=== PATIENT | male | born 1980 | race Caucasian/White ===

== ENCOUNTER 2016-09-12 09:45 | Emergency (ER) | payer OTHER ==
[2016-09-12 10:51] VITALS: BP 150/91
--- NOTE | 2016-09-12 12:00 | UC ---
Skin Complaint HPI - HPI Summary HPI Summary: has painful erythema on both his feet does blister--sever pain to walk on began on right foot 2 weeks after an exposure to cold in mid July is now on both feet has seen pcp---rx Keflex, Bactrim and hct 2.5% and the rash is worsening - History of Current Complaint Chief Complaint: UCSkin Time Seen by Provider: 09/12/16 10:54 Stated Complaint: TOE PAIN FROM COLD Hx Obtained From: Patient Onset/Duration: Gradual Onset, Lasting Weeks, Still Present, Worse Since - past week Timing: Constant Onset Severity: Mild Current Severity: Moderate Pain Intensity: 10 - in the morning before tylenol and ibuprofen Pain Scale Used: 0-10 Numeric Location: Discrete - toes and bottom of both feet Character: Swelling, Pain, Redness Aggravating: Touch Alleviating: OTC Meds Associated Signs & Symptoms: Positive: Negative - Allergy/Home Medications Allergies/Adverse Reactions: Allergies Allergy/AdvReac Type Severity Reaction Status Date / Time No Known Allergies Allergy Verified 09/12/16 10:41 Home Medications: Home Medications Armodafinil (NF) [Nuvigil (NF)] 09/12/16 [History] Bupropion HCl [Wellbutrin Sr] 09/12/16 [History] Creatinine (Bulk) [Creatinine] 09/12/16 [History] Flaxseed (Linseed) [Flax Seed Oil 1000 mg] 09/12/16 [History] Hydrocortisone (Topical) [Hydrocortisone] 09/12/16 [History] Lorazepam [Ativan] 09/12/16 [History] Prasterone (DHEA) CAP (NF) [Dhea Cap (NF)] 09/12/16 [History] Sulfamethox/Trimethoprim DS* [Bactrim DS 800/160 TAB*] 09/12/16 [History] Vortioxetine HBr [Trintellix] 09/12/16 [History] Review of Systems Constitutional: Negative Skin: Rash - as described Eyes: Negative ENT: Negative Respiratory: Negative Cardiovascular: Negative Gastrointestinal: Negative Genitourinary: Negative Motor: Negative Neurovascular: Negative Musculoskeletal: Negative Neurological: Negative Psychological: Negative All Other Systems Reviewed And Are Negative: Yes PMH/Surg Hx/FS Hx/Imm Hx Previously Healthy: No Psychological History Of: Reports: Anxiety - Surgical History Surgical History: None - Family History Known Family History: Positive: Hypertension, Diabetes - Social History Occupation: Employed Full-time Lives: With Family Alcohol Use: Occasionally Substance Use Type: Prescribed Smoking Status (MU): Light Every Day Tobacco Smoker Physical Exam Triage Information Reviewed: Yes Appearance: Well-Appearing, No Pain Distress, Well-Nourished Vital Signs: Initial Vital Signs Temp 99.2 F 09/12/16 10:43 Pulse 80 09/12/16 10:43 Resp 18 09/12/16 10:43 BP 150/91 09/12/16 10:43 Pulse Ox 99 09/12/16 10:43 Vital Signs Reviewed: Yes Eye Exam: Normal Eyes: Positive: Conjunctiva Clear ENT Exam: Normal ENT: Positive: Normal ENT inspection, Hearing grossly normal. Negative: Nasal congestion, Nasal drainage, Trismus, Muffled/hoarse voice Neck exam: Normal Neck: Positive: Supple, Nontender, No Lymphadenopathy Respiratory Exam: Normal Respiratory: Positive: Chest non-tender, Lungs clear, Normal breath sounds, No respiratory distress, No accessory muscle use Cardiovascular Exam: Normal Cardiovascular: Positive: RRR, No Murmur, Pulses Normal, Brisk Capillary Refill Musculoskeletal Exam: Normal Musculoskeletal: Positive: Strength Intact, ROM Intact, No Edema, Other: - pulses in feet strong and equal Neurological Exam: Normal Neurological: Positive: Alert Psychological Exam: Normal Skin: Positive: Other - as described-does moody Course/Dx - Course Course Of Treatment: off work-follow with Dr. Phillips on Thursday as we schedueled for you continue bactrim, hydrocort - Differential Diagnoses - Skin Complaint Differential Diagnoses: Cellulitis, Eczema, Impetigo, Systemic Illness, Urticaria - Diagnoses Provider Diagnoses: dermatitis Discharge - Discharge Plan Condition: Stable Disposition: HOME Patient Education Materials: Acute Rash (ED) Forms: *Work Release Referrals: Yoanna Phillips [Medical Doctor] - 09/15/16 7:15 am Jonathan Lovett MD [Primary Care Provider] -
== END 2016-09-12 12:18 | disposition home or self-care (01) ==
LOC: UCEAST 09:45
DX: L30.9 Dermatitis, unspecified (principal); F17.210 Nicotine dependence, cigarettes, uncomplicated
CPT/HCPCS: 99211; G0463

== ENCOUNTER 2017-10-06 11:12 | Emergency (ER) | payer OTHER ==
[2017-10-06 11:43] VITALS: BP 133/96
--- NOTE | 2017-10-06 12:29 | UC ---
Hand/Wrist HPI - HPI Summary HPI Summary: Patient presents s/p traumatic injury of the right wrist, he believes he must have injured it last night when he did a chin up. Today he noticed pain when certain movements such as gripping the mop handle and other times when he would bend it certain ways. He states the pain in over the volar aspect of the medial wrist. He describes it as an aching sensation and more sharp when he moves it. He denies any numbness or weakness. - History Of Current Complaint Chief Complaint: UCUpperExtremity Stated Complaint: WRIST PAIN Time Seen by Provider: 10/06/17 12:15 Hx Obtained From: Patient Onset/Duration: Sudden Onset Severity Initially: Moderate Severity Currently: Moderate Pain Intensity: 0 Character Of Pain: Aching Aggravating Factor(s): Movement, Flexion, Internal/External Rotation, Twisting Alleviating Factor(s): Nothing Associated Signs And Symptoms: Positive: Negative - Risk Factors Compartment Syndrome Risk Factors: Pain - Allergies/Home Medications Allergies/Adverse Reactions: Allergies Allergy/AdvReac Type Severity Reaction Status Date / Time No Known Allergies Allergy Verified 10/06/17 11:43 Home Medications: Home Medications Amphetamine-Dextroamphetamine [Adderall 5 mg] 5 mg PO BID 10/06/17 [History Confirmed 10/06/17] Ginkgo Biloba [Ginkgo Biloba 230 mg] 1 tab PO DAILY 10/06/17 [History Confirmed 10/06/17] PMH/Surg Hx/FS Hx/Imm Hx Previously Healthy: Yes - Surgical History Surgical History: None - Family History Known Family History: Positive: Hypertension, Diabetes - Social History Occupation: Employed Full-time Lives: Alone Alcohol Use: Rare Substance Use Type: None Smoking Status (MU): Heavy Every Day Tobacco Smoker Amount Used/How Often: 1 PPD Review of Systems Constitutional: Negative Skin: Negative Eyes: Negative ENT: Negative Respiratory: Negative Cardiovascular: Negative Gastrointestinal: Negative Genitourinary: Negative Motor: Decreased ROM Neurovascular: Negative Musculoskeletal: Negative Neurological: Negative Psychological: Negative Is Patient Immunocompromised?: No All Other Systems Reviewed And Are Negative: Yes Physical Exam Triage Information Reviewed: Yes Appearance: Well-Appearing Vital Signs: Initial Vital Signs Temp 99.0 F 10/06/17 11:38 Pulse 88 10/06/17 11:38 Resp 16 10/06/17 11:38 BP 133/96 10/06/17 11:38 Pulse Ox 97 10/06/17 11:38 Eye Exam: Normal ENT Exam: Normal Neck exam: Normal Neck: Positive: 1 Respiratory Exam: Normal Cardiovascular Exam: Normal Abdominal Exam: Normal Musculoskeletal: Positive: Other: - pain on palpation of the right wrist volar medial aspect. rom intact in all planes. neuro,without deficits. Neurological Exam: Normal Psychological Exam: Normal Skin Exam: Normal Hand/Wrist Course/Dx - Course Course Of Treatment: Patient presents s/p traumatic injury of the right wrist, he hurt it doing a chin up. Xrays were obtained and were negative for fracture. He presents with what is most likely a wrist yas, or tendonitis. He was placed in a cock up splint, and RX Naprosen. I recommend that if his symtpoms do not improve within 48 hours he should follow up with an orthopedists. - Differential Dx/Diagnosis Differential Diagnosis/HQI/PQRI: Sprain, Strain, Tendonitis Provider Diagnoses: sprain. stain. tendonitis of right wrist. Discharge - Discharge Plan Condition: Stable Disposition: HOME Prescriptions: Naproxen TAB* [Naprosyn 375 mg TAB*] 375 mg PO BID PRN #14 tab PRN Reason: wrist sprain Patient Education Materials: Wrist Sprain (ED) Forms: *Work Release Referrals: Chavez Jay MD [Medical Doctor] - Jonathan Lovett MD [Primary Care Provider] -
--- NOTE | 2017-10-06 12:38 | RAD ---
HISTORY: Right wrist injury COMPARISONS: None VIEWS: 3, Frontal, lateral, and oblique views of the right wrist FINDINGS: BONE DENSITY: Normal. BONES: There is no displaced fracture. JOINTS: There is no arthropathy. ALIGNMENT: There is no dislocation. SOFT TISSUES: Unremarkable. OTHER FINDINGS: None. IMPRESSION: NO ACUTE OSSEOUS INJURY. IF SYMPTOMS PERSIST, RECOMMEND REPEAT IMAGING.
== END 2017-10-06 12:46 | disposition home or self-care (01) ==
LOC: UCEAST 11:12
DX: F17.210 Nicotine dependence, cigarettes, uncomplicated (principal); S63.501A Unspecified sprain of right wrist, initial encounter; S66.811A Strain of other specified muscles, fascia and tendons at wrist and hand level, right hand, initial encounter; Y93.B2 Activity, push-ups, pull-ups, sit-ups; Y92.9 Unspecified place or not applicable; X58.XXXA Exposure to other specified factors, initial encounter; M65.841 Other synovitis and tenosynovitis, right hand
CPT/HCPCS: 99211; G0463

== ENCOUNTER 2018-02-03 13:10 | Emergency (ER) | payer OTHER ==
[2018-02-03 13:45] VITALS: BP 147/81
--- NOTE | 2018-02-03 14:33 | RAD ---
HISTORY: Right posterior knee pain COMPARISONS: None VIEWS: 4, Frontal, lateral, axial, and oblique views of the right knee FINDINGS: BONE DENSITY: Normal. BONES: There is no displaced fracture. JOINTS: There is no arthropathy. There is no suprapatellar joint effusion or lipohemarthrosis. ALIGNMENT: There is no dislocation. SOFT TISSUES: Unremarkable. OTHER FINDINGS: None. IMPRESSION: NO ACUTE OSSEOUS INJURY. IF SYMPTOMS PERSIST, RECOMMEND REPEAT IMAGING.
--- NOTE | 2018-02-03 16:14 | UC ---
Meseret Handy Elizabeth, scribed for Jonathan Wei MD on 02/03/18 at 1407 . Lower Extremity/Ankle HPI - HPI Summary HPI Summary: This patient is a 37 year old M presenting to [facility] with a chief complaint of posterior right leg pain above the knee since 1 day ago. The patient reports that he noticed a sharp pain in the area that started after he knelt down on all fours. The patient rates the pain 1/10 in severity. Symptoms aggravated by bending his knee. Symptoms alleviated by nothing. Patient denies any other pain. - History of Current Complaint Chief Complaint: UCLowerExtremity Stated Complaint: LEG INJURY Time Seen by Provider: 02/03/18 13:51 Hx Obtained From: Patient Onset/Duration: Sudden Onset, Lasting Days - 1 day, Still Present Severity Initially: Mild Severity Currently: Mild Pain Intensity: 1 Pain Scale Used: 0-10 Numeric Aggravating Factor(s): Other - bending his leg Alleviating Factor(s): Nothing Able to Bear Weight: Yes - Allergies/Home Medications Allergies/Adverse Reactions: Allergies Allergy/AdvReac Type Severity Reaction Status Date / Time No Known Allergies Allergy Verified 02/03/18 13:36 Home Medications: Home Medications Amphetamine MIXED SALTS TAB* [Adderall TAB*] 5 mg PO BID 02/03/18 [History Confirmed 02/03/18] PMH/Surg Hx/FS Hx/Imm Hx Other Cardiovascular History: NEGATIVE [place] Other Respiratory History: NEGATIVE COPD - Surgical History Surgical History: None - Family History Known Family History: Positive: Hypertension, Diabetes - Social History Alcohol Use: Rare Substance Use Type: None Smoking Status (MU): Heavy Every Day Tobacco Smoker Type: Cigarettes Amount Used/How Often: 1 PPD Review of Systems Constitutional: Negative - NEGATIVE FEVER ENT: Negative - NEGATIVE EPISTAXIS Musculoskeletal: Other: - pain at posterior of right leg above the knee Neurological: Negative - NEGATIVE HEADACHE All Other Systems Reviewed And Are Negative: Yes Physical Exam - Summary Physical Exam Summary: General: well-appearing, no pain distress Skin: warm, color reflects adequate perfusion, dry Head: normal Eyes: EOMI, RAJ ENT: normal Neck: supple, nontender Respiratory: CTA, breath sounds present Cardiovascular: RRR Abdomen: soft, nontender Bowel: present Musculoskeletal: normal, strength/ROM intact. Pain is not reproducible on knee exam. No effusion, no tenderness with movement of patella, no tenderness of lateral or collateral ligaments. Negative McBurneys, negative anterior and posterior Drawer Test, negative Yee Test Neurological: sensory/motor intact, A&O x3 Psychological: affect/mood appropriate Triage Information Reviewed: Yes Vital Signs: Initial Vital Signs Temp 98.4 F 02/03/18 13:40 Pulse 73 02/03/18 13:40 Resp 16 02/03/18 13:40 BP 147/81 02/03/18 13:40 Pulse Ox 100 02/03/18 13:40 Vital Signs Reviewed: Yes Lower Extremity Course/Dx - Course Course Of Treatment: PROBABLE RIGHT LATERAL HAMSTRING TENDON INJURY. NO EFFUSION, NO CLICKING, NO LOCKING, STABLE TO EXAM. THE PLAN IS REST FOR 4 DAYS AND RE EVAL IF NOT COMPLETELY IMPROVED. - Differential Dx/Diagnosis Provider Diagnoses: RIGHT KNEE PAIN Discharge - Sign-Out/Discharge Documenting (check all that apply): Discharge/Admit/Transfer - Discharge Plan Condition: Stable Disposition: HOME Patient Education Materials: Knee Pain (ED) Forms: *Work Release Referrals: Jonathan Lovett MD [Primary Care Provider] - Additional Instructions: FOLLOW UP WITH YOUR DOCTOR IF NOT COMPLETELY IMPROVED. GET RECHECKED FOR ANY WORSENING OF YOUR CONDITION OR QUESTIONS OR CONCERNS. - Billing Disposition and Condition Condition: STABLE Disposition: HOME The documentation as recorded by the Meseret rosario Elizabeth accurately reflects the service I personally performed and the decisions made by me, Jonathan Wei MD.
== END 2018-02-03 14:53 | disposition home or self-care (01) ==
LOC: UCEAST 13:10
DX: M25.561 Pain in right knee (principal); F17.210 Nicotine dependence, cigarettes, uncomplicated
CPT/HCPCS: 99211; G0463

== ENCOUNTER 2018-06-14 11:36 | Emergency (ER) | payer OTHER ==
[2018-06-14 11:53] VITALS: BP 155/114
--- NOTE | 2018-06-14 12:44 | RAD ---
HISTORY: pain rt knee COMPARISONS: February 03, 2018 VIEWS: 4 , Frontal, lateral, axial, and oblique views of the right knee FINDINGS: BONE DENSITY: Normal. BONES: There is no displaced fracture. JOINTS: There is no arthropathy. There is no suprapatellar joint effusion or lipohemarthrosis. ALIGNMENT: There is no dislocation. SOFT TISSUES: Unremarkable. OTHER FINDINGS: None. IMPRESSION: NO ACUTE OSSEOUS INJURY. IF SYMPTOMS PERSIST, RECOMMEND REPEAT IMAGING.
--- NOTE | 2018-06-14 12:47 | UC ---
Lower Extremity/Ankle HPI - HPI Summary HPI Summary: 37 year old male here in clinic today with a complaint of right knee pain. While at work while the patient was walking he had sudden onset of right knee pain and it locked in place. The locking occurred several times. It has not locked the last couple of days. The pain is improved with rest. There is more pain going up and down stairs. - History of Current Complaint Chief Complaint: UCLowerExtremity Stated Complaint: KNEE INJURY Time Seen by Provider: 06/14/18 12:23 Pain Intensity: 1 - Allergies/Home Medications Allergies/Adverse Reactions: Allergies Allergy/AdvReac Type Severity Reaction Status Date / Time No Known Allergies Allergy Verified 06/14/18 11:53 Home Medications: Home Medications Ascorbic Acid TAB* [Vitamin C TAB*] 1 tab PO DAILY 06/14/18 [History Confirmed 06/14/18] Glucosamine Sulfate Dipot Chlr [Glucosamine] 1 tab PO DAILY 06/14/18 [History Confirmed 06/14/18] Methylphenidate TAB* [Ritalin TAB*] 1 tab PO BID 06/14/18 [History Confirmed 04/24] PMH/Surg Hx/FS Hx/Imm Hx Previously Healthy: Yes - Surgical History Surgical History: None - Family History Known Family History: Positive: Hypertension, Diabetes - Social History Alcohol Use: Rare Substance Use Type: None Smoking Status (MU): Heavy Every Day Tobacco Smoker Type: Cigarettes Amount Used/How Often: 1 PPD - Immunization History Most Recent Tetanus Shot: UTD Review of Systems Constitutional: Negative Skin: Negative Eyes: Negative ENT: Negative Respiratory: Negative Cardiovascular: Negative Gastrointestinal: Negative Motor: Other - SEE HPI Neurovascular: Negative Musculoskeletal: Other: - SEE HPI Neurological: Negative Psychological: Negative Is Patient Immunocompromised?: No All Other Systems Reviewed And Are Negative: Yes Physical Exam Triage Information Reviewed: Yes Appearance: Well-Appearing, No Pain Distress, Well-Nourished Vital Signs: Initial Vital Signs Temp 98.9 F 06/14/18 11:47 Pulse 77 06/14/18 11:47 Resp 18 06/14/18 11:47 BP 155/114 06/14/18 11:47 Pulse Ox 98 06/14/18 11:47 Vital Signs Reviewed: Yes Eye Exam: Normal Eyes: Positive: Conjunctiva Clear Respiratory: Positive: No respiratory distress Musculoskeletal: Positive: Other: - The right knee has no effusion at this time. There is some tenderness to palpation on the medial aspect of the knee. There is some creaking on palpation with range of motion of the knee. The patella is nontender to range of motion. Negative Eleanor's. The knee is stable to exam. No color. No rash. Neurological Exam: Normal Neurological: Positive: Alert, Muscle Tone Normal Psychological Exam: Normal Psychological: Positive: Age Appropriate Behavior Skin Exam: Normal Lower Extremity Course/Dx - Course Course Of Treatment: Order Information: KNEE RIGHT 4+ VWS. Accession Number: [id number]. CPT: 52261. HISTORY: pain rt knee. COMPARISONS: February 03, 2018. VIEWS: 4 , Frontal, lateral, axial, and oblique views of the right knee. FINDINGS: BONE DENSITY: Normal. BONES: There is no displaced fracture. JOINTS : There is no arthropathy. There is no suprapatellar joint effusion or. lipohemarthrosis. ALIGNMENT: There is no dislocation. SOFT TISSUES: Unremarkable. OTHER FINDINGS: None. IMPRESSION: NO ACUTE OSSEOUS INJURY. IF SYMPTOMS PERSIST, RECOMMEND REPEAT IMAGING. . <Electronically signed by Mark Zapien MD in OV> 06/14/18 [id number]. I discussed the x-ray results with the patient. The locking of the knee is probably due to a piece of loose cartilage .The overall plan is to rest the knee ICE necessary ibuprofen as necessary. Follow-up will be with the occupational medicine doctor. Out of work until cleared by medical provider. - Differential Dx/Diagnosis Provider Diagnoses: RIGHT KNEE PAIN, PROBABLE INTERNAL DERANGEMENT. Discharge - Sign-Out/Discharge Documenting (check all that apply): Patient Departure All imaging exams completed and their final reports reviewed: Yes - Discharge Plan Condition: Stable Disposition: HOME Patient Education Materials: Knee Pain (ED) Forms: *Work Release Referrals: Jonathan Lovett MD [Primary Care Provider] - Lane Green MD [Medical Doctor] - Additional Instructions: FOLLOW UP WITH DR GREEN, OCCUPATIONAL MEDICINE. GET RECHECKED FOR ANY WORSENING OF YOUR CONDITION OR QUESTIONS OR CONCERNS. - Billing Disposition and Condition Condition: STABLE Disposition: Home
== END 2018-06-14 13:16 | disposition home or self-care (01) ==
LOC: UCEAST 11:36
DX: M25.561 Pain in right knee (principal); F17.210 Nicotine dependence, cigarettes, uncomplicated
CPT/HCPCS: 99211; G0463

== ENCOUNTER 2019-01-28 08:55 | Emergency (ER) | payer OTHER ==
[2019-01-28 09:03] VITALS: BP 134/100
--- NOTE | 2019-01-28 10:18 | UC ---
Back Pain HPI - HPI Summary HPI Summary: 38-year-old male who was vacuuming and doing some house cleaning at his job yesterday when he started to feel some left lower back strain. He denies any numbness or tingling in his extremities and has no saddle anesthesia. - History of Current Complaint Chief Complaint: UCBackPain Stated Complaint: BACK INJURY Time Seen by Provider: 01/28/19 10:18 Hx Obtained From: Patient Onset/Duration: Gradual Onset Timing: Constant Severity Initially: Mild Severity Currently: Mild Pain Intensity: 9 Back Pain: Is Discrete @ - Left lower back. Character: Dull Aggravating Factor(s): Movement, Lifting, Bending Alleviating Factor(s): Rest Associated Signs And Symptoms: Positive: Negative. Negative: Swelling, Weakness , Numbness, Tingling, Abdominal Pain, Flank Pain, Bladder Incontinence, Bowel Incontinence, Pain with Weight Bearing - Allergies/Home Medications Allergies/Adverse Reactions: Allergies Allergy/AdvReac Type Severity Reaction Status Date / Time No Known Allergies Allergy Verified 01/28/19 09:03 PMH/Surg Hx/FS Hx/Imm Hx Previously Healthy: Yes - Surgical History Surgical History: None - Family History Known Family History: Positive: Hypertension, Diabetes - Social History Alcohol Use: Rare Substance Use Type: None Smoking Status (MU): Heavy Every Day Tobacco Smoker Type: Cigarettes Amount Used/How Often: 1 PPD - Immunization History Most Recent Tetanus Shot: UTD Review of Systems All Other Systems Reviewed And Are Negative: Yes Motor: Positive: Negative Neurovascular: Positive: Negative Musculoskeletal: Positive: Negative Neurological: Positive: Negative Is Patient Immunocompromised?: No Physical Exam Triage Information Reviewed: Yes Appearance: Well-Appearing, No Pain Distress, Well-Nourished Vital Signs: Initial Vital Signs Temp 98 F 01/28/19 09:00 Pulse 67 01/28/19 09:00 Resp 15 01/28/19 09:00 BP 134/100 01/28/19 09:00 Pulse Ox 100 01/28/19 09:00 Vital Signs Reviewed: Yes Musculoskeletal: Positive: Strength Intact, ROM Intact, Other: - Spine nontender , mild tenderness left lower back, negative straight leg raise, good peripheral pulses neuro sensation capillary refill, reflexes +2 at the knee. Neurological Exam: Normal Psychological Exam: Normal Skin Exam: Normal Back Pain Course/Dx - Course Course Of Treatment: Patient walks and moves without too much difficulty. Am giving him a muscle relaxant as well as ibuprofen and follow-up with Dr. Mcclelland on Thursday if he continues to have pain. - Differential Dx/Diagnosis Provider Diagnosis: Low back strain Discharge - Sign-Out/Discharge Documenting (check all that apply): Patient Departure All imaging exams completed and their final reports reviewed: No Studies - Discharge Plan Condition: Fair Disposition: HOME Prescriptions: Cyclobenzaprine TAB* [Flexeril 10 MG TAB*] 10 mg PO TID PRN #15 tab PRN Reason: Pain Patient Education Materials: Low Back Strain (ED) Referrals: Jonathan Lovett MD [Primary Care Provider] - Additional Instructions: Avoid movements that cause pain, take ibuprofen 600 mg every 8 hours with food, may take the Flexeril 3 times a day. Do not drive, drink alcohol or operate machinery while you're taking the muscle relaxant. Follow-up with either your primary care provider or Dr. Mcclelland for further care if you continue to have pain by Thursday. - Billing Disposition and Condition Condition: FAIR Disposition: Home
== END 2019-01-28 10:29 | disposition home or self-care (01) ==
LOC: UCEAST 08:55
DX: S39.012A Strain of muscle, fascia and tendon of lower back, initial encounter (principal); F17.210 Nicotine dependence, cigarettes, uncomplicated; X50.0XXA Overexertion from strenuous movement or load, initial encounter; Y93.E3 Activity, vacuuming; Y92.009 Unspecified place in unspecified non-institutional (private) residence as the place of occurrence of the external cause
CPT/HCPCS: 99212; G0463

== ENCOUNTER 2019-11-22 06:41 | Day surgery (SDC) | payer OTHER ==
--- NOTE | 2019-11-11 15:11 | HP ---
PREOPERATIVE HISTORY AND PHYSICAL: DATE OF ADMISSION/SURGERY: 11/22/19 - [facility] DATE OF OFFICE VISIT/ENCOUNTER: 11/10/19 ATTENDING SURGEON: Uma Wakefield MD * (DICTATED BY BECKY ZHENG) PROCEDURE: Left elbow ulnar nerve submuscular transposition. 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 He complains of numbness and weakness in his left hand. He reports his little finger has been numb for close to 10 years. He does not recall any injury. He saw a doctor years ago who did a nerve test and told him that his nerve was pinched, but he never received any treatment. He reports that his pinky finger has been numb since then and he has developed weakness in the hand. He has noticed that he has had some muscle wasting. 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 He denies having any significant pain, but reports numbness and weakness in the left hand ulnar nerve distribution. After review of diagnostic tests and evaluation by Dr. Wakefield, he has consented to proceed with surgical intervention. PAST MEDICAL HISTORY: 1. History of hypertension. 2. Osteoarthritis. 3. Depression/anxiety. 4. Attention deficit disorder. PAST SURGICAL HISTORY: None. CURRENT MEDICATIONS: 1. Adderall 20 mg daily. 2. Arginine 250 mg daily. 3. DHEA 10 mg daily. 4. Flaxseed. 5. Ginkgo biloba 100 mg daily. 6. Lorazepam 0.5 mg 1 tab p.r.n. 7. Magnesium 250 mg daily. 8. Melatonin 3 mg 2 tabs at bedtime. 9. Trintellix 10 mg daily. 10. Wellbutrin XL 150 mg daily. ALLERGIES: No known drug allergies. FAMILY MEDICAL HISTORY: Cancer. SOCIAL HISTORY: The patient works in facilities at [email or web address]. He is a supervisor contact and service clerks. He is a current smoker half to 1 pack per day for the past 20 years. He denies recreational drug use. Alcohol on rare occasion. REVIEW OF SYSTEMS: Negative for general, cephalic, cardiovascular, respiratory , GI, , other musculoskeletal, integumentary, endocrine, neurologic, and hematologic symptoms. Infectious Disease: Negative for MRSA, hepatitis C, HIV. PHYSICAL EXAMINATION GENERAL: A well-developed, well-nourished 39-year-old male, in no acute distress. VITAL SIGNS: Height 5 feet tall, weight 193 pounds. Pulse rate 88, blood pressure 138/82. HEENT: Normocephalic, atraumatic. Pupils are equal, round, and reactive to light and accommodation. Extraocular movements are intact. Throat is clear. NECK: Supple. No palpable lymph nodes. PULMONARY: Lungs are clear to auscultation bilaterally. No wheezes, rales, or rhonchi. CARDIOVASCULAR: Regular rate and rhythm. S1, S2. No murmurs, rubs, or gallops. No edema. ABDOMEN: Positive bowel sounds. Soft, nontender. NEUROLOGICAL: Alert and oriented x3. Cranial nerves II through XII are intact. MUSCULOSKELETAL: On exam of his left upper extremity, he has severe muscle wasting of his hypothenar eminence and the first dorsal interosseous along with the rest of his interosseous muscles. He cannot resist finger abduction at all. He has good thumb abduction. Thenar eminence is preserved. He has no sensation in his ulnar nerve distribution in the left hand. The ulnar nerve at the elbow subluxes anteriorly. He has full range of motion at his elbow. IMPRESSION: Ulnar neuropathy at the elbow. PLAN: The patient is scheduled to undergo a left elbow ulnar nerve submuscular transposition with Dr. Wakefield on 11/22/19. He will return to the office 10 days postop for followup and suture removal. A prescription for [place] will be e-scribed to the patient's pharmacy for postoperative pain management. BECKY ZHENG [id number]/[facility] #: [id number] MARYBEL
[~2019-11-22 06:41] MED LIST: Buffered Lidocaine 1% SYRIN* 1 ML/SYRINGE INTRADERM ONE; Lactated Ringers 1000 ML Bag* 1,000 ML IV SCH
[2019-11-22] MEDS ORDERED: ceFAZolin 2 GM PREMIX in ORs 2 GM/50 ML BAG ONE (07:09)
[2019-11-22] MEDS ORDERED: Bupivacaine 0.5% SDV PF* 30ML VIAL ONE (09:13)
[2019-11-22] MEDS ORDERED: Propofol* 10 MG/ML 20 ML BTL ONE ×2 (09:26→10:34)
[2019-11-22] MEDS ORDERED: fentaNYL* 50 MCG/ML 2 ML VIAL (100 MCG VIAL) ONE (09:27)
[2019-11-22] MEDS ORDERED: Midazolam* 1 MG/ML 2 ML VIAL (2 MG) ONE (09:27)
[2019-11-22] MEDS ORDERED: Ondansetron INJ* 2 MG/ML VIAL ONE (10:34)
[2019-11-22] MEDS ORDERED: Dexamethasone IV* 4 MG/ML 1 ML (4 MG) ONE (10:34)
[2019-11-22 11:17] VITALS: BP 138/93
--- NOTE | 2019-11-22 12:34 | OP ---
DATE OF OPERATION: 11/22/19 [facility] DATE OF : 80 SURGEON: Uma Wakefield MD. [employer]PART[employer] SUPERVISOR: BECKY Michael. ANESTHESIA: General. PRE-OP DIAGNOSIS: Left ulnar nerve compression at the elbow with subluxation. POST-OP DIAGNOSIS: Left ulnar nerve compression at the elbow with subluxation. OPERATIVE PROCEDURE: Left ulnar nerve submuscular transposition. ESTIMATED BLOOD LOSS: Zero. TOURNIQUET TIME: About 35 minutes. INDICATIONS FOR PROCEDURE: Asad is a 39-year-old male who has numbness and tingling in the ulnar nerve distribution of his left hand with subluxation of his ulnar nerve at the elbow. He presents for submuscular transposition. DESCRIPTION OF PROCEDURE: The patient was brought to the operating room, was given a general anesthetic and placed in the supine position on the operating table with a tourniquet around his left upper arm. The skin of his left upper extremity was prepped and draped in the usual sterile fashion. The upper extremity was exsanguinated and the tourniquet elevated to 250 mmHg. A curvilinear incision was made centered between the medial epicondyle and the tip of the olecranon process. We dissected through the subcutaneous tissue down to the ulnar nerve, which was overriding the medial epicondyle. The nerve was carefully dissected proximally for several centimeters above the elbow and through the FCU fascia. It was then transposed anteriorly. The medial inner muscular septum was divided. The flexor pronator origin was lengthened in Z- fashion and the nerve was then secured in the submuscular bed without any kinking. The fascia of the flexor pronator origin was repaired with 0 Vicryl suture. The wound was copiously irrigated with saline and the subcutaneous tissue was closed with 3-0 Vicryl and then the skin edges reapproximated with shira. The wound was dressed with Xeroform, 4x4, Webril, and an Pee wrap. The patient tolerated the procedure well and was brought to the recovery room in good condition. [id number]/[facility] #: [id number] [facility]
== END 2019-11-22 11:46 | disposition home or self-care (01) ==
LOC: OREAST 06:41
PROVIDERS: ATTEND Orthopaedic Surgery
DX: G56.22 Lesion of ulnar nerve, left upper limb (principal); F41.8 Other specified anxiety disorders; F90.9 Attention-deficit hyperactivity disorder, unspecified type; M19.90 Unspecified osteoarthritis, unspecified site; F17.210 Nicotine dependence, cigarettes, uncomplicated
CPT/HCPCS: J0690; J1100; J2250; J2405; J2704; J3010; J3490